=== PATIENT | female | born 1955 | race Caucasian/White ===

== ENCOUNTER → 2017-03-29 | Outpatient (CLI) | payer BC ==
[2017-04-01 11:29] LABS: HPV Genotype 16 Not Detected (NOTDET); HPV Genotype 18 Not Detected (NOTDET)
[2017-04-03 13:20] LABS: HPV High Risk Other Not Detected (NOTDET)
== END | disposition home or self-care (01) ==
LOC: OLS 13:50
PROVIDERS: Nurse Practitioner Women's Health
DX: Z12.4 Encounter for screening for malignant neoplasm of cervix (principal)
CPT/HCPCS: 87624; G0123

== ENCOUNTER → 2018-05-01 | Outpatient (CLI) | payer BC ==
[2018-05-06 10:10] LABS: HPV 16 Negative (Negative); HPV 18 Negative (Negative); HPV OTHER HR TYPES Negative (Negative)
== END | disposition home or self-care (01) ==
LOC: LAB SHORT 12:40 → LAB 12:40
PROVIDERS: Nurse Practitioner Women's Health
DX: Z12.4 Encounter for screening for malignant neoplasm of cervix (principal)
CPT/HCPCS: 87624; G0123

== ENCOUNTER 2018-05-15 11:30 | Inpatient (IN) | payer BC ==
[~2018-05-15] VITALS: Ht 154.9 cm; Wt 75.0 kg
[2018-06-24] MEDS ORDERED: HYDSUL200 (08:38)
[2018-06-24] MEDS ORDERED: SULF500A (08:38)
[2018-06-24] MEDS ORDERED: HYDCHL12.5 PO (08:39)
[2018-06-24] MEDS ORDERED: Azulfidine500 MG PO (08:39)
[2018-06-24] MEDS ORDERED: OMEPRAZOLE20 MG PO (08:40)
[2018-06-24] MEDS ORDERED: ERGO400 PO (08:41)
[2018-06-24] MEDS ORDERED: CALCIUM PO (08:42)
[2018-06-24] MEDS ORDERED: DESV50 PO (08:43)
[2018-06-24] MEDS ORDERED: TRAZ150T57 PO (08:43)
[2018-06-24] MEDS ORDERED: LORATADINE PO (08:44)
[2018-06-24] MEDS ORDERED: L-METHYLFOLATE15 MG PO (08:44)
[2018-06-24] MEDS ORDERED: EXEM25 PO (08:44)
[2018-06-24] MEDS ORDERED: LORA1 PO (08:44)
[2018-06-24] MEDS ORDERED: Estrace Vagin42.5 GM VAG (08:45)
[2018-06-24] MEDS ORDERED: BETA.05TO TOP (08:45)
[2018-06-24] MEDS ORDERED: DICLOFENAC SOD100 G1 TOP (08:47)
[2018-06-24] MEDS ORDERED: CELE100 PO (08:47)
--- NOTE | 2018-06-26 10:33 | NUR ---
PT ADMITTED TO [facility]. AGREES WITH PLANNED SURGERY. MEDS, ALLRGIES AND HX REVIEWED. LUNG SOUNDS CLEAR. NOZIN SWAB TO BILATERAL NARES.
--- NOTE | 2018-06-26 12:50 | NUR ---
06/26/[address] PERFORMED A SPINAL ON PT UPON ARRIVAL TO OR. PT WAS THEN MOVED OVER TO OR TABLE WITH NO PROBLEMS.
--- NOTE | 2018-06-26 17:49 | NUR ---
SHIFT SUMMARY PATIENT CONT TO DENY PAIN. ABLE TO MOVE FEET AT THIS TIME (SPINAL.) STATES L HAND SENSATION RETURNING TO NORMAL. (LYMPHADENECTOMY 9 YRS AGO AND BP CUFF WAS ON L ARM UPON ARRIVAL TO UNIT.) MESSAGE WAS LEFT FOR DR WELSH. VSS. BIOX IN 90'S ON RA. AQUACEL DRESSING D&I. TOLERATING PO. DENIES NEED TO URINATE (BS IN PACU WAS 48ML.) POLAR PAC IN PLACE R HIP. CALL LIGHT IN REACH. CONT TO MONITOR.
[2018-06-27 05:04] LABS: BASOPHILS ABSOLUTE AUTO 0.02 K/mm3 (0.00-0.23); BASOPHILS PERCENT AUTO 0 % (0-2); EOSINOPHILS ABSOLUTE AUTO 0.08 K/mm3 (0.00-0.68); EOSINOPHILS PERCENT AUTO 1 % (0-6); Hematocrit 28.1 % (33.0-51.0); IMMATURE GRAN ABSOLUTE AUTO 0.02 K/mm3 (0.00-0.10); IMMATURE GRAN PERCENT AUTO 0 % (0-1); LYMPHOCYTES ABSOLUTE AUTO 1.19 K/mm3 (0.84-5.20); LYMPHOCYTES PERCENT AUTO 20 % (21-46); MONOCYTES ABSOLUTE AUTO 0.67 K/mm3 (0.16-1.47); MONOCYTES PERCENT AUTO 11 % (4-13); Mean Corpuscular Volume 94 fL (80-100); Mean Platelet Volume 9.9 fL (9.1-12.4); NEUTROPHILS ABSOLUTE AUTO 4.07 K/mm3 (1.96-9.15); NEUTROPHILS PERCENT AUTO 67 % (41-73); Platelet Count 153 K/mm3 (150-400); RDW Coefficient Variation 13.6 % (11.7-14.2); RDW Standard Deviation 46.8 fL (35.1-46.3); White Blood Cell Count 6.05 K/mm3 (4.00-11.30)
--- NOTE | 2018-06-27 05:04 | NUR ---
SHIFT SUMMARY; PT POD #1 FOR RT BROOKE. OOB TO BRP W/FWW+1 ASSIST. AHSAN ACTIVITY WELL. TOE TOUCH WB. PAIN MANAGED WITH PERCOCET 10MG, TORADOL AND TYLENOL. PT REPORTS GOOD PAIN CONTROL. AQAUCEL DRESSING CDI WITH POLAR PACK IN PLACE. FLUIDS AND ABX INFUSING. AHSAN PO INTAKE AND VOIDING WELL. DENIES N/V.
[2018-06-27 05:24] LABS: Anion Gap 5 mmol/L (6-16); Blood Urea Nitrogen 13 mg/dL (8-24); Bun/Creatinine Ratio 21.6 (12.0-20.0); CO2, Blood 29 mmol/L (21-32); Calcium, Blood 7.9 mg/dL (8.5-10.1); Chloride, Blood 105 mmol/L (98-108); Glomerular Filtration Rate >60 (60-); Glucose, Blood 123 mg/dL (70-99); Potassium, Blood 3.6 mmol/L (3.5-5.5); Sodium, Blood 139 mmol/L (136-145)
[2018-06-27] MEDS ORDERED: Percocet 5-3251 EACH PO (10:45)
[2018-06-27] MEDS ORDERED: Aspir 8181 MG PO (10:46)
--- NOTE | 2018-06-27 12:30 | NUR ---
PATIENT D/C'D HOME WITH SPOUSE AT THIS TIME. PATIENT STATES UNDERSTANDING OF MEDS, WOUND CARE, OP PT, EXERCISES, F/U APPT, ETC. PATIENT STATES PAIN CONTROLLED WITH PO PAIN MEDS. TOLERATING PO. NO C/O AT THIS TIME.
== END 2018-06-27 12:26 | disposition home or self-care (01) | DRG 470 ==
LOC: SURS 06-26 09:52 → PRE IP 06-26 11:30 → SURS 06-26 16:16
PROVIDERS: ADMIT Orthopaedic Surgery
PROC: 0SR903Z Replacement of Right Hip Joint with Ceramic Synthetic Substitute, Open Approach (ICD-10-PCS; principal; 2018-06-26 11:30)
DX: M16.11 Unilateral primary osteoarthritis, right hip (principal); Z85.3 Personal history of malignant neoplasm of breast; M06.9 Rheumatoid arthritis, unspecified; F32.9 Major depressive disorder, single episode, unspecified
CPT/HCPCS: 36415; 72170; 80048; 85025; 86850; 86900; 86901; 88300; 94762; 97110; 97116; 97162; 97530; C1776; J0171; J0690; J0735; J1885; J2250; J2704; J2795; J7120